=== PATIENT | male | born 2000 | race Caucasian/White ===

== ENCOUNTER 2021-11-24 13:40 | Emergency (ER) | payer OTHER ==
[~2021-11-24] VITALS: Ht 172.7 cm; Wt 59.1 kg
[2021-11-24 15:49] VITALS: BP 113/69
== END 2021-11-24 15:52 | disposition home or self-care (01) ==
LOC: M ED 13:40
DX: S93.402A Sprain of unspecified ligament of left ankle, initial encounter (principal); M54.50 Low back pain, unspecified; F17.200 Nicotine dependence, unspecified, uncomplicated; F10.10 Alcohol abuse, uncomplicated; Y92.9 Unspecified place or not applicable; Y93.01 Activity, walking, marching and hiking; Y99.1 Military activity

== ENCOUNTER 2024-01-06 21:58 | Emergency (ER) | payer OTHER ==
[~2024-01-06] VITALS: Ht 172.7 cm; Wt 64.0 kg
[2024-01-06 23:11] LABS: HEMATOCRIT 44.8 % (42.0-52.0); HEMOGLOBIN 15.4 g/dl (13.5-17.5); MEAN CORPUSCULAR HEMOGLOBIN 29.6 pg (27.0-33.0); MEAN CORPUSCULAR HGB CONC 34.4 g/dl (32.0-36.5); MEAN CORPUSCULAR VOLUME 86.2 fl (80.0-96.0); PLATELET COUNT, AUTOMATED 287 10^3/uL (150-450); WHITE BLOOD COUNT 7.3 10^3/uL (4.0-10.0)
[2024-01-06 23:37] LABS: AMPHETAMINES LEVEL URINE NEGATIVE (NEGATIVE); BARBITURATES URINE NEGATIVE (NEGATIVE); BENZODIAZEPINES URINE NEGATIVE (NEGATIVE); COCAINE METABOLITE URINE NEGATIVE (NEGATIVE); METHADONE URINE NEGATIVE (NEGATIVE); OPIATES URINE NEGATIVE (NEGATIVE); PHENCYCLIDINE URINE NEGATIVE (NEGATIVE)
[2024-01-06 23:38] LABS: CANNABINOIDS URINE NEGATIVE (NEGATIVE)
[2024-01-06 23:39] LABS: ETHYL ALCOHOL (ETHANOL) 0.004 % (0.000-0.010)
[2024-01-06 23:41] LABS: ALBUMIN 4.4 G/DL (3.2-5.2); ALKALINE PHOSPHATASE 65 U/L (40-129); ALT/SGPT 15 U/L (7.0-40); AST/SGOT 11 U/L (<34); BILIRUBIN,DIRECT 0.2 MG/DL (<0.4); BILIRUBIN,TOTAL 0.8 MG/DL (0.3-1.2); BLOOD UREA NITROGEN 11 MG/DL (9-23); CALCIUM LEVEL 9.9 MG/DL (8.5-10.1); CARBON DIOXIDE LEVEL 25 MMOL/L (20-31); CHLORIDE LEVEL 106 MMOL/L (98-107); CREATININE FOR GFR 0.96 MG/DL (0.70-1.30); GLOMERULAR FILTRATION RATE > 60.0 (>60); GLUCOSE, FASTING 68 MG/DL (60-100); POTASSIUM SERUM 4.1 MMOL/L (3.5-5.1); SALICYLATE LEVEL < 3.0 MG/DL (<30); SODIUM LEVEL 139 MMOL/L (136-145); TOTAL PROTEIN 7.2 G/DL (5.7-8.2)
[2024-01-07] MEDS ORDERED: HOME MED LIST COMPLETE! XX SCH (00:50)
[2024-01-07] MEDS: NICOTINE 21MG/24HR 1 EA TRANSDERMAL TD ONE (01:47)
[2024-01-07 10:58] VITALS: BP 124/70; TEMP 97.7; O2SAT 99
== END 2024-01-07 11:02 | disposition home or self-care (01) ==
LOC: M ED 21:58
DX: F43.20 Adjustment disorder, unspecified (principal); F32.A Depression, unspecified; F17.200 Nicotine dependence, unspecified, uncomplicated; F10.10 Alcohol abuse, uncomplicated